=== PATIENT | female | born 1930 | race Caucasian/White ===

== ENCOUNTER 2017-10-12 15:56 | Emergency (ER) | payer MEDICARE, BC ==
[~2017-10-12] VITALS: Ht 167.6 cm; Wt 80.0 kg
[~2017-10-12 15:56] MED LIST: AMLO1TAB14 PO; ASPI-1009 PO; ASTNS; CALC-965 PO; ESOM20CA PO; FERGLU300T PO; HYDR12.522 PO; KRIL1CAP11 PO; METO10TA3 PO; METO50TA7 PO; MULT-1085 PO; RED600TA PO
[2017-10-12] MEDS ORDERED: normal saline 1000ML IV soln IVB ONE (16:35)
[2017-10-12] MEDS ORDERED: ondansetron/PF 4mg/2ml inj IV ONE (16:35)
[2017-10-12 16:50] LABS: BASOPHILS % (AUTO) 0.4 % (0-1); EOSINOPHILS # (AUTO) 0.3 X10'3 (0-0.9); EOSINOPHILS % (AUTO) 3.2 % (0-6); HEMOGLOBIN 12.3 g/dl (12.0-16.0); LYMPHOCYTES # (AUTO) 1.4 X10'3 (1.1-4.8); LYMPHOCYTES % (AUTO) 13.9 % (21-51); MEAN CORPUSCULAR HEMOGLOBIN 32.5 PG (27.0-31.0); MEAN CORPUSCULAR HGB CONC 34.2 % (33.0-36.5); MEAN PLATELET VOLUME 8.1 FL (7.4-10.4); MONOCYTES # (AUTO) 0.6 X10'3 (0-0.9); MONOCYTES % (AUTO) 6.2 % (2-12); NEUTROPHILS # (AUTO) 7.7 X10'3 (1.8-7.7); NEUTROPHILS % (AUTO) 76.3 % (42-75); PLATELET COUNT 326 X10'3 (140-440); RED BLOOD COUNT 3.79 X10'6 (4.20-5.60); WHITE BLOOD COUNT 10.1 X10'3 (4.5-11.0)
[2017-10-12 17:07] LABS: ALANINE AMINOTRANSFERASE 27 U/L (12-78); ALBUMIN 3.3 G/DL (3.4-5.0); ALBUMIN/GLOBULIN RATIO 0.8 (1.1-1.5); ALKALINE PHOSPHATASE 78 IU/L (46-116); ANION GAP 13 (8-16); ASPARTATE AMINO TRANSFERASE 14 U/L (10-37); BILIRUBIN,TOTAL 0.4 MG/DL (0.1-1.0); BLOOD UREA NITROGEN 32 MG/DL (7-18); BUN/CREATININE RATIO 20.5 (6.6-38.0); CALCIUM 9.2 MG/DL (8.5-10.1); CHLORIDE 104 MMOL/L (99-107); CREATININE 1.56 MG/DL (0.40-0.90); GLUCOSE 121 MG/DL (70-104); POTASSIUM 4.2 MMOL/L (3.5-5.1); SODIUM 141 MMOL/L (135-145); TOTAL CARBON DIOXIDE 24.3 MMOL/L (24-32); TOTAL PROTEIN 7.6 G/DL (6.4-8.2); eGFR 31 ML/MIN
[2017-10-12 19:13] VITALS: BP 130/80
== END 2017-10-12 19:23 | disposition home or self-care (01) ==
LOC: ER 15:57
DX: R19.7 Diarrhea, unspecified (principal); I10 Essential (primary) hypertension; K44.9 Diaphragmatic hernia without obstruction or gangrene; M85.80 Other specified disorders of bone density and structure, unspecified site; Z88.0 Allergy status to penicillin; Z79.899 Other long term (current) drug therapy; Z79.82 Long term (current) use of aspirin
CPT/HCPCS: 36415; 74176; 80053; 85025; 96361; 96374; 99285; J2405; J7030

== ENCOUNTER 2018-07-07 11:56 | Emergency (ER) | payer MEDICARE, BC ==
[~2018-07-07] VITALS: Ht 167.6 cm; Wt 81.7 kg
[2018-07-07 12:51] LABS: BASOPHILS % (AUTO) 0.5 % (0-1); EOSINOPHILS # (AUTO) 0.1 X10'3 (0-0.9); EOSINOPHILS % (AUTO) 1.6 % (0-6); HEMATOCRIT 39.3 % (35.0-45.0); HEMOGLOBIN 13.1 g/dl (12.0-16.0); LYMPHOCYTES # (AUTO) 1.6 X10'3 (1.1-4.8); LYMPHOCYTES % (AUTO) 29.5 % (21-51); MEAN CORPUSCULAR HEMOGLOBIN 32.4 PG (27.0-31.0); MEAN CORPUSCULAR HGB CONC 33.5 % (33.0-36.5); MEAN CORPUSCULAR VOLUME 96.9 FL (78-98); MEAN PLATELET VOLUME 9.2 FL (7.4-10.4); MONOCYTES # (AUTO) 0.5 X10'3 (0-0.9); MONOCYTES % (AUTO) 8.2 % (2-12); NEUTROPHILS # (AUTO) 3.3 X10'3 (1.8-7.7); NEUTROPHILS % (AUTO) 60.2 % (42-75); PLATELET COUNT 310 X10'3 (140-440); RED BLOOD COUNT 4.05 X10'6 (4.20-5.60); RED CELL DISTRIBUTION WIDTH 14.2 % (11.5-14.5); WHITE BLOOD COUNT 5.5 X10'3 (4.5-11.0)
[2018-07-07 13:09] LABS: PROTHROMBIN TIME 10.5 SECONDS (9.0-12.0)
[2018-07-07] MEDS ORDERED: normal saline 1000ML IV soln IVB ONE (13:10)
[2018-07-07] MEDS ORDERED: ondansetron/PF 4mg/2ml inj IV ONE (13:10)
[2018-07-07] MEDS ORDERED: pantoprazole 40 MG vial IV ONE (13:10)
[2018-07-07 13:11] LABS: ALANINE AMINOTRANSFERASE 25 U/L (12-78); ALBUMIN 3.3 G/DL (3.4-5.0); ALBUMIN/GLOBULIN RATIO 0.8 (1.1-1.5); ALKALINE PHOSPHATASE 55 IU/L (46-116); ANION GAP 12 (8-16); ASPARTATE AMINO TRANSFERASE 14 U/L (10-37); BILIRUBIN,TOTAL 0.4 MG/DL (0.1-1.0); BLOOD UREA NITROGEN 47 MG/DL (7-18); BUN/CREATININE RATIO 24.5 (6.6-38.0); CALCIUM 8.6 MG/DL (8.5-10.1); CHLORIDE 109 MMOL/L (99-107); CREATININE 1.92 MG/DL (0.40-0.90); GLUCOSE 106 MG/DL (70-104); POTASSIUM 4.2 MMOL/L (3.5-5.1); SODIUM 140 MMOL/L (135-145); TOTAL CARBON DIOXIDE 19.1 MMOL/L (24-32); TOTAL PROTEIN 7.4 G/DL (6.4-8.2); eGFR 25 ML/MIN
[2018-07-07 14:04] LABS: CLARITY,URINE CLOUDY (Clear); COLOR,URINE YELLOW (Yellow); GLUCOSE, URINE NEGATIVE (Neg); KETONES,URINE NEGATIVE (Neg); LEUKOCYTE ESTERASE ,URINE SMALL (Neg); NITRITES, URINE POSITIVE (Neg); OCCULT BLOOD,URINE NEGATIVE (Neg); PH,URINE 5.5 (4.8-8.0); PROTEIN,URINE TRACE mg/dl (Neg); UROBILINOGEN,URINE 0.2 E.U/dL (0.2-1.0)
[2018-07-07 14:07] LABS: UA COLLECTION TYPE STRAIGHT CATH
[2018-07-07 14:13] LABS: BACTERIA,URINE 2+ /HPF (Neg); SQUAMOUS EPITHELIAL CELL,UR MANY /LPF (FEW)
[2018-07-07 14:14] LABS: RBC,URINE 0-2 /HPF (0-2); WBC,URINE 20-30 /HPF (0-4)
[2018-07-07 14:15] LABS: WBC CLUMPS,URINE MODERATE /HPF (NEGATIVE)
[2018-07-07] MEDS ORDERED: DIPH1TAB PO (14:33)
[2018-07-07] MEDS ORDERED: NITR100C6 PO (14:35)
[2018-07-07 14:54] VITALS: BP 123/65
== END 2018-07-07 14:55 | disposition home or self-care (01) ==
LOC: ER 11:56
DX: R19.7 Diarrhea, unspecified (principal); N39.0 Urinary tract infection, site not specified; R11.2 Nausea with vomiting, unspecified; I10 Essential (primary) hypertension; K21.9 Gastro-esophageal reflux disease without esophagitis; Z95.0 Presence of cardiac pacemaker; Z88.0 Allergy status to penicillin; Z88.8 Allergy status to other drugs, medicaments and biological substances; Z87.891 Personal history of nicotine dependence; Z79.82 Long term (current) use of aspirin; Z79.899 Other long term (current) drug therapy
CPT/HCPCS: 36415; 80053; 81001; 85025; 85610; 87088; 87186; 96361; 96374; 99284; C9113; J2405; J7030; P9612

== ENCOUNTER 2019-01-22 16:48 | Emergency (ER) | payer MEDICARE, BC ==
[~2019-01-22] VITALS: Ht 167.6 cm; Wt 85.4 kg
[~2019-01-22 16:48] MED LIST changes: +DIPH1TAB PO; +NITR100C6 PO
[2019-01-22 19:45] VITALS: BP 156/74
[2019-01-22 20:16] LABS: ALANINE AMINOTRANSFERASE 47 U/L (12-78); ALBUMIN 3.6 G/DL (3.4-5.0); ALBUMIN/GLOBULIN RATIO 0.9 (1.1-1.5); ALKALINE PHOSPHATASE 52 IU/L (46-116); ANION GAP 10 (8-16); ASPARTATE AMINO TRANSFERASE 25 U/L (10-37); BILIRUBIN,TOTAL 0.4 MG/DL (0.1-1.0); BLOOD UREA NITROGEN 27 MG/DL (7-18); BUN/CREATININE RATIO 19.9 (6.6-38.0); CALCIUM 8.7 MG/DL (8.5-10.1); CHLORIDE 103 MMOL/L (99-107); CREATININE 1.36 MG/DL (0.40-0.90); GLUCOSE 93 MG/DL (70-104); POTASSIUM 4.1 MMOL/L (3.5-5.1); SODIUM 138 MMOL/L (135-145); TOTAL CARBON DIOXIDE 25.4 MMOL/L (24-32); TOTAL PROTEIN 7.5 G/DL (6.4-8.2); eGFR 37 ML/MIN
[2019-01-22] MEDS ORDERED: LEVO750T21 PO (20:20)
[2019-01-22 20:48] LABS: BASOPHILS % (AUTO) 0.2 % (0-1); EOSINOPHILS # (AUTO) 0.1 X10'3 (0-0.9); EOSINOPHILS % (AUTO) 2.4 % (0-6); HEMATOCRIT 40.7 % (35.0-45.0); HEMOGLOBIN 13.8 g/dl (12.0-16.0); LYMPHOCYTES % (AUTO) 17.8 % (21-51); MEAN CORPUSCULAR HEMOGLOBIN 34.1 PG (27.0-31.0); MEAN CORPUSCULAR VOLUME 100.4 FL (78-98); MEAN PLATELET VOLUME 9.7 FL (7.4-10.4); MONOCYTES # (AUTO) 0.7 X10'3 (0-0.9); MONOCYTES % (AUTO) 11.9 % (2-12); NEUTROPHILS # (AUTO) 3.7 X10'3 (1.8-7.7); NEUTROPHILS % (AUTO) 67.7 % (42-75); PLATELET COUNT 180 X10'3 (140-440); RED BLOOD COUNT 4.06 X10'6 (4.20-5.60); WHITE BLOOD COUNT 5.5 X10'3 (4.5-11.0)
[2019-01-22] MEDS ORDERED: levoFLOXACIN 750MG TABLET PO ONE (21:00)
== END 2019-01-22 21:29 | disposition home or self-care (01) ==
LOC: ER 16:49
DX: J18.9 Pneumonia, unspecified organism (principal); I10 Essential (primary) hypertension; K21.9 Gastro-esophageal reflux disease without esophagitis; Z95.0 Presence of cardiac pacemaker; Z98.890 Other specified postprocedural states; Z88.0 Allergy status to penicillin; Z88.8 Allergy status to other drugs, medicaments and biological substances; Z79.82 Long term (current) use of aspirin; Z79.2 Long term (current) use of antibiotics; Z79.899 Other long term (current) drug therapy
CPT/HCPCS: 36415; 71046; 80053; 83605; 85025; 87040; 99284

== ENCOUNTER 2019-01-24 17:11 | Inpatient (IN) | payer MEDICARE, BC ==
[~2019-01-24] VITALS: Ht 167.6 cm; Wt 81.0 kg
[~2019-01-24 17:11] MED LIST changes: +LEVO750T21 PO
[2019-01-24] MEDS ORDERED: azithromycin/NS 500mg/250ml 250 ML IV ONE ×2 (17:30→18:05)
[2019-01-24] MEDS ORDERED: CefTRIAXone 2gm/D5W 50ml 50 ML IV ONE (17:30)
[2019-01-24 17:55] LABS: EOSINOPHILS # (AUTO) 0.1 X10'3 (0-0.9); LYMPHOCYTES # (AUTO) 0.8 X10'3 (1.1-4.8); NEUTROPHILS # (AUTO) 1.2 X10'3 (1.8-7.7)
[2019-01-24 17:56] LABS: BASOPHILS % (AUTO) 0.6 % (0-1); EOSINOPHILS % (AUTO) 3.6 % (0-6); HEMATOCRIT 36.7 % (35.0-45.0); HEMOGLOBIN 12.4 g/dl (12.0-16.0); LYMPHOCYTES % (AUTO) 33.1 % (21-51); MEAN CORPUSCULAR HEMOGLOBIN 33.3 PG (27.0-31.0); MEAN CORPUSCULAR HGB CONC 33.8 g/dL (33.0-36.5); MEAN CORPUSCULAR VOLUME 98.5 FL (78-98); MONOCYTES # (AUTO) 0.3 X10'3 (0-0.9); MONOCYTES % (AUTO) 12.5 % (2-12); NEUTROPHILS % (AUTO) 50.2 % (42-75); PLATELET COUNT 141 X10'3 (140-440); RED BLOOD COUNT 3.73 X10'6 (4.20-5.60); RED CELL DISTRIBUTION WIDTH 14.3 % (11.5-14.5)
[2019-01-24 17:58] LABS: WHITE BLOOD COUNT 2.4 X10'3 (4.5-11.0)
[2019-01-24 17:59] LABS: PARTIAL THROMBOPLASTIN TIME 32 SECONDS (22-32)
[2019-01-24 18:01] LABS: ALANINE AMINOTRANSFERASE 36 U/L (12-78); ALBUMIN 2.9 G/DL (3.4-5.0); ALBUMIN/GLOBULIN RATIO 0.9 (1.1-1.5); ALKALINE PHOSPHATASE 49 IU/L (46-116); ANION GAP 9 (8-16); ASPARTATE AMINO TRANSFERASE 21 U/L (10-37); BILIRUBIN,TOTAL 0.4 MG/DL (0.1-1.0); BLOOD UREA NITROGEN 25 MG/DL (7-18); BUN/CREATININE RATIO 17.6 (6.6-38.0); CHLORIDE 102 MMOL/L (99-107); CREATININE 1.42 MG/DL (0.40-0.90); GLUCOSE 115 MG/DL (70-104); MAGNESIUM 1.9 MG/DL (1.5-2.4); POTASSIUM 3.9 MMOL/L (3.5-5.1); SODIUM 136 MMOL/L (135-145); TOTAL PROTEIN 6.3 G/DL (6.4-8.2); eGFR 35 ML/MIN
[2019-01-24 18:06] LABS: CALCIUM 8.3 MG/DL (8.5-10.1)
[2019-01-24] MEDS ORDERED: ondansetron/PF 4mg/2ml inj IV ONE (18:15)
[2019-01-24 18:50] LABS: PLATELET ESTIMATE NORMAL; TOTAL CELLS COUNTED 100
[2019-01-24 18:51] LABS: LARGE PLATELETS FEW
[2019-01-24 19:23] LABS: CLARITY,URINE CLEAR (Clear); COLOR,URINE YELLOW (Yellow); GLUCOSE, URINE NEGATIVE (Neg); KETONES,URINE NEGATIVE (Neg); LEUKOCYTE ESTERASE ,URINE NEGATIVE (Neg); NITRITES, URINE NEGATIVE (Neg); OCCULT BLOOD,URINE TRACE-INTACT (Neg); PROTEIN,URINE NEGATIVE (Neg); UROBILINOGEN,URINE 0.2 E.U/dL (0.2-1.0)
[2019-01-24 19:30] LABS: UA COLLECTION TYPE CLN CATCH MIDSTREAM
[2019-01-24 19:32] LABS: BACTERIA,URINE 1+ /HPF (Neg); MUCUS STRANDS FEW /LPF (Neg); RBC,URINE 0-2 /HPF (0-2); SQUAMOUS EPITHELIAL CELL,UR MODERATE /LPF (FEW); WBC,URINE 0-4 /HPF (0-4)
[2019-01-24] MEDS ORDERED: potassium CL 10mEq/100ml bag 100 ML IV PRN ×2 (20:05)
[2019-01-24] MEDS ORDERED: ipratropium/albuterol 3ml nebule NEB PRN (20:05)
[2019-01-24] MEDS ORDERED: potassium Cl 20 mEq SR tablet PO PRN ×2 (20:05)
[2019-01-24] MEDS ORDERED: magnesium Cl slow-release 64mg tablet PO PRN (20:05)
[2019-01-24] MEDS ORDERED: acetaminophen 325mg tablet PO PRN (20:05)
[2019-01-24] MEDS ORDERED: magnesium 2GM in 50ml NS 50 ML IV PRN (20:05)
[2019-01-24] MEDS ORDERED: magnesium 4gm in 100ml NS 100 ML IV PRN (20:05)
[2019-01-24 21:15] VITALS: BP 178/73
--- NOTE | 2019-01-25 06:26 | NUR ---
REPORT GIVEN TO HERSON NGUYEN.
--- NOTE | 2019-01-25 06:37 | NUR ---
Received report from Elicia BAINS
[2019-01-25 06:38] VITALS: BP_SYST 135; BP_SYST 145; BP_SYST 147; BP_DIAS 67; BP_DIAS 74; BP_DIAS 75
[2019-01-25 06:44] VITALS: BP 135/75
[2019-01-25 07:08] LABS: ALBUMIN 2.7 G/DL (3.4-5.0); ANION GAP 9 (8-16); BLOOD UREA NITROGEN 20 MG/DL (7-18); CALCIUM 8.3 MG/DL (8.5-10.1); CHLORIDE 104 MMOL/L (99-107); CREATININE 1.33 MG/DL (0.40-0.90); GLUCOSE 106 MG/DL (70-104); MAGNESIUM 1.9 MG/DL (1.5-2.4); POTASSIUM 3.8 MMOL/L (3.5-5.1); SODIUM 139 MMOL/L (135-145); eGFR 38 ML/MIN
[2019-01-25 07:09] LABS: BASOPHILS % (AUTO) 0.5 % (0-1); EOSINOPHILS # (AUTO) 0.1 X10'3 (0-0.9); EOSINOPHILS % (AUTO) 5.5 % (0-6); HEMATOCRIT 35.6 % (35.0-45.0); HEMOGLOBIN 12.4 g/dl (12.0-16.0); LYMPHOCYTES # (AUTO) 0.9 X10'3 (1.1-4.8); LYMPHOCYTES % (AUTO) 39.7 % (21-51); MEAN CORPUSCULAR HEMOGLOBIN 33.9 PG (27.0-31.0); MEAN CORPUSCULAR HGB CONC 34.7 g/dL (33.0-36.5); MEAN CORPUSCULAR VOLUME 97.7 FL (78-98); MEAN PLATELET VOLUME 9.4 FL (7.4-10.4); MONOCYTES # (AUTO) 0.3 X10'3 (0-0.9); MONOCYTES % (AUTO) 14.6 % (2-12); NEUTROPHILS # (AUTO) 0.9 X10'3 (1.8-7.7); NEUTROPHILS % (AUTO) 39.7 % (42-75); PLATELET COUNT 139 X10'3 (140-440); RED BLOOD COUNT 3.64 X10'6 (4.20-5.60); RED CELL DISTRIBUTION WIDTH 14.5 % (11.5-14.5); WHITE BLOOD COUNT 2.2 X10'3 (4.5-11.0)
[2019-01-25] MEDS: docusate sod 100mg capsule PO SCH ×2 (07:30→20:15)
[2019-01-25] MEDS: heparin, porcine 5000 units/ml vial SQ SCH ×2 (07:31→20:16)
[2019-01-25] MEDS: K and/or MAG REPLACEMENT MC SCH (08:00)
[2019-01-25] MEDS ORDERED: levoFLOXACIN-Levaquin 500mg/D5 100 ML IV SCH (08:00)
[2019-01-25 10:38] VITALS: BP 140/66
[2019-01-25] MEDS ORDERED: ESOM40CA54 PO (11:11)
[2019-01-25 11:37] LABS: PLATELET ESTIMATE DECREASED; TOTAL CELLS COUNTED 100
[2019-01-25 11:38] LABS: SMUDGE CELLS 1+
[2019-01-25 18:00] VITALS: BP 145/64
--- NOTE | 2019-01-25 18:20 | NUR ---
Received report from Jacey BAINS, assumed care of patient with Nisreen BAINS.
--- NOTE | 2019-01-25 18:25 | NUR ---
Patient in room [facility]TH[facility] 4023. I have received report from HERSON Mari and had the opportunity to ask questions and assume patient care.
[2019-01-25] MEDS: pantoprazole 40mg Tablet.DR PO SCH (18:58)
[2019-01-25 20:00] VITALS: BP_SYST 142; BP_SYST 145; BP_SYST 149; BP_DIAS 64; BP_DIAS 67; BP_DIAS 72
[2019-01-25 22:00] VITALS: BP 145/69
[2019-01-26] MEDS: ondansetron/PF 4mg/2ml inj IV PRN ×2 (00:18→08:29)
--- NOTE | 2019-01-26 06:24 | NUR ---
Gave report to Summer BAINS with Nisreen BAINS.
[2019-01-26 06:27] LABS: BASOPHILS % (AUTO) 0.5 % (0-1); EOSINOPHILS # (AUTO) 0.1 X10'3 (0-0.9); EOSINOPHILS % (AUTO) 3.5 % (0-6); HEMATOCRIT 38.1 % (35.0-45.0); HEMOGLOBIN 12.9 g/dl (12.0-16.0); LYMPHOCYTES # (AUTO) 1.1 X10'3 (1.1-4.8); LYMPHOCYTES % (AUTO) 42.7 % (21-51); MEAN CORPUSCULAR HEMOGLOBIN 33.4 PG (27.0-31.0); MEAN CORPUSCULAR VOLUME 98.4 FL (78-98); MEAN PLATELET VOLUME 9.9 FL (7.4-10.4); MONOCYTES # (AUTO) 0.4 X10'3 (0-0.9); MONOCYTES % (AUTO) 14.3 % (2-12); PLATELET COUNT 148 X10'3 (140-440); RED BLOOD COUNT 3.87 X10'6 (4.20-5.60); RED CELL DISTRIBUTION WIDTH 14.3 % (11.5-14.5); WHITE BLOOD COUNT 2.6 X10'3 (4.5-11.0)
[2019-01-26 06:30] VITALS: BP 166/70
[2019-01-26 06:34] LABS: ALBUMIN 2.8 G/DL (3.4-5.0); ANION GAP 9 (8-16); BLOOD UREA NITROGEN 23 MG/DL (7-18); BUN/CREATININE RATIO 16.4 (6.6-38.0); CALCIUM 8.3 MG/DL (8.5-10.1); CHLORIDE 103 MMOL/L (99-107); GLUCOSE 109 MG/DL (70-104); MAGNESIUM 1.9 MG/DL (1.5-2.4); POTASSIUM 4.1 MMOL/L (3.5-5.1); SODIUM 140 MMOL/L (135-145); TOTAL CARBON DIOXIDE 27.7 MMOL/L (24-32); eGFR 35 ML/MIN
[2019-01-26] MEDS: heparin, porcine 5000 units/ml vial SQ SCH ×2 (07:31→20:25)
[2019-01-26] MEDS: docusate sod 100mg capsule PO SCH ×2 (07:31→20:24)
[2019-01-26] MEDS: pantoprazole 40mg Tablet.DR PO SCH (07:31)
[2019-01-26] MEDS ORDERED: levoFLOXACIN-Levaquin 250mg/D5 50 ML IV SCH (08:00)
[2019-01-26] MEDS: K and/or MAG REPLACEMENT MC SCH (08:00)
[2019-01-26 10:14] VITALS: BP_SYST 131; BP_SYST 137; BP_SYST 143; BP_DIAS 71; BP_DIAS 74; BP_DIAS 75
[2019-01-26 10:15] VITALS: BP 143/71
[2019-01-26 13:10] LABS: PLATELET ESTIMATE NORMAL; TOTAL CELLS COUNTED 100
[2019-01-26 13:11] LABS: SMUDGE CELLS 1+
[2019-01-26] MEDS ORDERED: azelastine Nasal Spray bottle NS PRN (14:00)
[2019-01-26] MEDS: azithromycin/NS 500mg/250ml 250 ML IV SCH (14:48)
[2019-01-26 17:00] VITALS: BP 153/71
--- NOTE | 2019-01-26 18:50 | NUR ---
Patient in room [facility]THO 4023. I have received report from Summer BAINS and had the opportunity to ask questions and assume patient care.
[2019-01-26 20:00] VITALS: BP_SYST 136; BP_SYST 166; BP_DIAS 68; BP_DIAS 76; BP_DIAS 86
[2019-01-26 22:00] VITALS: BP 136/68
[2019-01-27] MEDS: ondansetron/PF 4mg/2ml inj IV PRN (00:39)
[2019-01-27 06:23] LABS: BASOPHILS % (AUTO) 0.7 % (0-1); EOSINOPHILS # (AUTO) 0.1 X10'3 (0-0.9); EOSINOPHILS % (AUTO) 2.6 % (0-6); HEMATOCRIT 35.6 % (35.0-45.0); HEMOGLOBIN 12.1 g/dl (12.0-16.0); LYMPHOCYTES # (AUTO) 1.1 X10'3 (1.1-4.8); LYMPHOCYTES % (AUTO) 43.7 % (21-51); MEAN CORPUSCULAR HEMOGLOBIN 33.5 PG (27.0-31.0); MEAN CORPUSCULAR HGB CONC 34.1 g/dL (33.0-36.5); MEAN CORPUSCULAR VOLUME 98.2 FL (78-98); MEAN PLATELET VOLUME 9.5 FL (7.4-10.4); MONOCYTES # (AUTO) 0.3 X10'3 (0-0.9); MONOCYTES % (AUTO) 13.8 % (2-12); NEUTROPHILS % (AUTO) 39.2 % (42-75); PLATELET COUNT 150 X10'3 (140-440); RED BLOOD COUNT 3.63 X10'6 (4.20-5.60); RED CELL DISTRIBUTION WIDTH 14.3 % (11.5-14.5); WHITE BLOOD COUNT 2.4 X10'3 (4.5-11.0)
[2019-01-27 06:25] LABS: ALBUMIN 2.6 G/DL (3.4-5.0); ANION GAP 10 (8-16); BLOOD UREA NITROGEN 22 MG/DL (7-18); BUN/CREATININE RATIO 16.4 (6.6-38.0); CALCIUM 8.3 MG/DL (8.5-10.1); CHLORIDE 102 MMOL/L (99-107); CREATININE 1.34 MG/DL (0.40-0.90); GLUCOSE 110 MG/DL (70-104); MAGNESIUM 1.9 MG/DL (1.5-2.4); SODIUM 137 MMOL/L (135-145); TOTAL CARBON DIOXIDE 25.4 MMOL/L (24-32); eGFR 37 ML/MIN
--- NOTE | 2019-01-27 06:33 | NUR ---
Problems reprioritized. Patient report given, questions answered & plan of care reviewed with Zoila BAINS.
[2019-01-27 08:00] VITALS: BP_SYST 127; BP_SYST 129; BP_SYST 145; BP_DIAS 83; BP_DIAS 85; BP_DIAS 90
[2019-01-27] MEDS ORDERED: losartan 50mg tablet PO SCH (08:00)
[2019-01-27] MEDS ORDERED: VALSARTAN PO SCH (08:00)
[2019-01-27] MEDS ORDERED: amLODIPine 5mg tablet PO SCH (08:00)
[2019-01-27] MEDS ORDERED: aspirin 81mg tablet.DR PO SCH (08:00)
[2019-01-27] MEDS ORDERED: ESOMEPRAZOLE MAGNESIUM PO SCH (08:00)
[2019-01-27] MEDS ORDERED: multivitamins, therapeutics tablet PO SCH (08:00)
[2019-01-27] MEDS ORDERED: metoprolol succinate 25mg (24-HOUR) SR. Tablet PO SCH (08:00)
[2019-01-27] MEDS: K and/or MAG REPLACEMENT MC SCH (08:00)
[2019-01-27] MEDS ORDERED: AMLODIPINE PO SCH (08:00)
[2019-01-27] MEDS: docusate sod 100mg capsule PO SCH (08:43)
[2019-01-27] MEDS: azithromycin/NS 500mg/250ml 250 ML IV SCH (08:45)
[2019-01-27] MEDS: pantoprazole 40mg Tablet.DR PO SCH (08:45)
[2019-01-27] MEDS: heparin, porcine 5000 units/ml vial SQ SCH (09:11)
[2019-01-27] MEDS ORDERED: AZIT500T2 PO (09:51)
[2019-01-27 10:34] LABS: TOTAL CELLS COUNTED 100
[2019-01-27 10:43] LABS: PLATELET ESTIMATE NORMAL; SMUDGE CELLS 1+
--- NOTE | 2019-01-27 11:14 | NUR ---
AGER ID: [id number] MESSAGE: [id number] RE: MARIBELL [id number] PATIENT IS ASKING FOR ZOFRAN FOR HOME.
== END 2019-01-27 12:50 | disposition home or self-care (01) | DRG 682 ==
LOC: ER 17:11 → ORTHO 4S 20:18 → CMPBEDREQ 01-25 20:26
PROVIDERS: ADMIT Internal Medicine; ATTEND Family Medicine
DX: N17.9 Acute kidney failure, unspecified (principal); J18.1 Lobar pneumonia, unspecified organism; J44.0 Chronic obstructive pulmonary disease with (acute) lower respiratory infection; D69.6 Thrombocytopenia, unspecified; I12.9 Hypertensive chronic kidney disease with stage 1 through stage 4 chronic kidney disease, or unspecified chronic kidney disease; N18.9 Chronic kidney disease, unspecified; D72.819 Decreased white blood cell count, unspecified; K21.9 Gastro-esophageal reflux disease without esophagitis; I49.5 Sick sinus syndrome; Z88.0 Allergy status to penicillin; Z91.041 Radiographic dye allergy status; Z79.899 Other long term (current) drug therapy; Z79.82 Long term (current) use of aspirin; Z95.0 Presence of cardiac pacemaker
CPT/HCPCS: 36415; 71045; 71046; 80048; 80053; 81001; 83605; 83735; 84145; 85025; 85610; 85730; 87040; 93005; 93306; 94760; 96365; 96368; 96375; 99285; G0378; J0456; J0696; J1644; J1956; J2405

== ENCOUNTER 2019-03-28 19:58 | Emergency (ER) | payer MEDICARE, BC ==
[~2019-03-28] VITALS: Ht 167.6 cm; Wt 180.0 kg
[~2019-03-28 19:58] MED LIST changes: -CALC-965 PO; -DIPH1TAB PO; -ESOM20CA PO; +ESOM40CA54 PO; -FERGLU300T PO; -HYDR12.522 PO; -LEVO750T21 PO; -METO10TA3 PO; -NITR100C6 PO; -RED600TA PO
[2019-03-28] MEDS ORDERED: meclizine 12.5mg tablet PO ONE (20:40)
[2019-03-28] MEDS ORDERED: MECL-111 PO (21:39)
[2019-03-28 21:48] VITALS: BP 151/88
== END 2019-03-28 21:47 | disposition home or self-care (01) ==
LOC: ER 19:58
DX: H81.392 Other peripheral vertigo, left ear (principal); I10 Essential (primary) hypertension; K21.9 Gastro-esophageal reflux disease without esophagitis; Z88.0 Allergy status to penicillin; Z88.1 Allergy status to other antibiotic agents; Z88.8 Allergy status to other drugs, medicaments and biological substances; Z79.82 Long term (current) use of aspirin; Z79.899 Other long term (current) drug therapy; Z95.0 Presence of cardiac pacemaker; Z98.890 Other specified postprocedural states
CPT/HCPCS: 99283; J8597